=== PATIENT | male | born 1985 | race Caucasian/White ===

== ENCOUNTER 2016-08-12 05:04 | Emergency (ER) | payer OTHER ==
[2016-08-12] MEDS ORDERED: OXYMETAZOLINE HCL 0.05% NASAL SPRAY 15 ML BOTTLE ONE ×2 (06:15→06:57)
[2016-08-12] MEDS ORDERED: MORPHINE SULFATE 10 MG/ML INJ IV ONE ×2 (06:38→08:36)
[2016-08-12] MEDS ORDERED: ONDANSETRON HCL INJ/PF 4 MG/2 ML SDV IV ONE (06:38)
[2016-08-12 06:56] LABS: ABSOLUTE BASOPHILS # (AUTO) 0.1 10^3/uL (0.0-0.2); ABSOLUTE EOSINOPHILS # (AUTO) 0.1 10^3/uL (0.0-0.6); ABSOLUTE MONOCYTES (AUTO) 0.5 10^3/uL (0.1-1.4); ABSOLUTE NEUT (AUTO) 10.2 10^3/uL (1.7-8.2); BASOPHILS % (AUTO) 0.5 % (0-2); EOSINOPHILS % (AUTO) 0.4 % (0-6); HEMATOCRIT 45.4 % (37.9-51.0); HEMOGLOBIN 16.1 g/dL (13.5-17.0); HGB HCT DIFFERENCE 2.9; LYMPHOCYTES % (AUTO) 15.3 % (13-45); MEAN CORPUSCULAR HEMOGLOBIN 31.7 pg (27.0-33.4); MEAN CORPUSCULAR HGB CONC 35.5 g/dL (32.0-36.0); MEAN CORPUSCULAR VOLUME 89 fl (80-97); MONOCYTES % (AUTO) 4.2 % (3-13); RED BLOOD COUNT 5.09 10^6/uL (4.35-5.55); RED CELL DISTRIBUTION WIDTH 13.2 % (11.5-14.0); SEGMENTED NEUTROPHILS % (AUTO) 79.6 % (42-78); WHITE BLOOD COUNT 12.8 10^3/uL (4.0-10.5)
[2016-08-12 07:07] LABS: PARTIAL THROMBOPLASTIN TIME 26.8 SEC (23.5-35.8)
[2016-08-12 07:08] LABS: ALANINE AMINOTRANSFERASE 35 U/L (21-72); ALBUMIN 4.7 g/dL (3.5-5.0); ALKALINE PHOSPHATASE 49 U/L (38-126); ANION GAP 14 (5-19); ASPARTATE AMINO TRANSFERASE 26 U/L (17-59); BILIRUBIN,TOTAL 0.9 mg/dL (0.2-1.3); BLOOD UREA NITROGEN 21 mg/dL (7-20); CALCIUM 10.1 mg/dL (8.4-10.2); CARBON DIOXIDE 23 mmol/L (22-30); CHLORIDE 104 mmol/L (98-107); CREATININE RESULT 0.73 mg/dL (0.52-1.25); GLUCOSE 115 mg/dL (75-110); POTASSIUM 4.4 mmol/L (3.6-5.0); SODIUM 141.3 mmol/L (137-145); TOTAL PROTEIN 7.6 g/dL (6.3-8.2)
--- NOTE | 2016-08-12 07:22 | ER Document Report ---
ED ENT - General Chief Complaint: Nose Bleed Stated Complaint: NOSE BLEEDING Mode of Arrival: Ambulatory Information source: Patient Notes: This is a 31-year-old male with no significant past medical history who presents with epistaxis for the past 6 hours. He states that he has had difficulty getting his nosebleed to stop at home. He is not on anticoagulants and does not take aspirin. He does drink daily. He has had minor nosebleeds in the past but never anything to this degree. He denies any syncope or weakness. TRAVEL OUTSIDE OF THE [place] IN LAST 30 DAYS: No - Related Data Allergies/Adverse Reactions: No Known Allergies Allergy (Verified 08/12/16 05:05) Home Medications: Current Home Medications No Home Medications 08/12/16 [History] Past Medical History - General Information source: Patient - Social History Smoking Status: Never Smoker Chew tobacco use (# tins/day): No Frequency of alcohol use: Heavy Drug Abuse: None Family History: Reviewed & Not Pertinent - Past Medical History Cardiac Medical History: Reports: None Denies: Hx Heart Attack, Hx Hypertension Pulmonary Medical History: Reports: None Denies: Hx Asthma Renal/ Medical History: Denies: Hx Peritoneal Dialysis Surgical Hx: Negative Review of Systems - Review of Systems Notes: REVIEW OF SYSTEMS: CONSTITUTIONAL : Denies fever, chills, or sweats. Denies recent illness. EENT: As per history of present illness CARDIOVASCULAR: Denies chest pain. RESPIRATORY: Denies cough, cold, or chest congestion. Denies shortness of breath, difficulty breathing, or wheezing. GASTROINTESTINAL: Denies abdominal pain. Denies nausea, vomiting, or diarrhea. GENITOURINARY: Denies difficulty urinating, painful urination, burning, frequency, or blood in urine. MUSCULOSKELETAL: Denies neck or back pain or joint pain or swelling. SKIN: Denies rash or skin lesions. HEMATOLOGIC : Denies easy bruising or bleeding. LYMPHATIC: Denies swollen, enlarged glands. NEUROLOGICAL: Denies altered mental status or loss of consciousness. Denies headache. PSYCHIATRIC: Anxiety ALL OTHER SYSTEMS REVIEWED AND NEGATIVE. Physical Exam - Vital signs Vitals: Temp Pulse Resp BP Pulse Ox 97.4 F 114 H 18 145/94 H 99 08/12/16 05:23 08/12/16 05:23 08/12/16 05:23 08/12/16 05:23 08/12/16 05:23 - Notes Notes: PHYSICAL EXAMINATION: GENERAL: Anxious appearing, well-nourished and in no moderate distress secondary to active epistaxis. Conversant and protecting his airway. HEAD: Atraumatic, normocephalic. EYES: Pupils equal round and reactive to light, extraocular movements intact, sclera anicteric, conjunctiva are normal. ENT: brisk active bleeding from R nare, unable to localize source at this time, . Moist mucous membranes. NECK: Normal range of motion, supple without lymphadenopathy LUNGS: Breath sounds clear to auscultation bilaterally and equal. No wheezes rales or rhonchi. HEART: Regular rate and rhythm without murmurs ABDOMEN: Soft, nontender, normoactive bowel sounds. No guarding, no rebound. No masses appreciated. EXTREMITIES: Normal range of motion NEUROLOGICAL: No gross focal motor or sensory deficits appreciated. PSYCH: Anxious affect SKIN: Warm, Dry, normal turgor, no rashes or lesions noted. Course - Re-evaluation Re-evalutation: 08/12/16 07:14 08/12/16 07:50 Multiple attempts at packing with rapid Rhino. There was significant difficulty passing the entire 7.5 posterior rapid Rhino into the right near. As such the last 2 cm remains out. Patient then had bleeding from the left nares and a 4.5 cm rapid Rhino was placed. At this time the bleeding seems to have stabilized patient is no longer coughing up blood. His heart rate is now 95 he says he is feeling somewhat better. As there is no ENT available in [place] today I did discuss the case with [facility] Dr. Page who accepts the patient in an ER to ER transfer for further evaluation. - Vital Signs Vital signs: Temp Pulse Resp BP Pulse Ox 97.4 F 114 H 10 L 130/92 H 100 08/12/16 05:23 08/12/16 05:23 08/12/16 08:02 08/12/16 08:02 08/12/16 08:02 - Laboratory Result Diagrams: 08/12/16 06:47 08/12/16 06:47 Laboratory results interpreted by me: 08/12/16 08/12/16 06:47 06:47 WBC 12.8 H Seg Neutrophils % 79.6 H Absolute Neutrophils 10.2 H BUN 21 H Glucose 115 H Procedures - Nosebleed Procedure Right Location: Posterior Supplies used: [place] Notes: Pt cleared nares of clots with forceful blowing, then Afrin sprayed into nares bilaterally. 4% cocaine soaked cotton balls placed in R nare. 3 attempts at placement, placement somewhat difficult. 4.5 rapid rhino also placed to L nare. Hemostasis was obtained. Discharge - Discharge Clinical Impression: Acute posterior epistaxis, Alcohol abuse Condition: Stable Disposition: [facility]
[2016-08-12] MEDS ORDERED: NORMAL SALINE 1000 ML 1,000 ML IV ONE (07:23)
[2016-08-12] MEDS ORDERED: COCAINE HCL 4% TOPICAL SOLN 4 ML TP ONE (07:24)
[2016-08-12 09:39] VITALS: BP 130/92
== END 2016-08-12 08:45 | disposition short-term general hospital (02) ==
LOC: ER 05:04
PROC: 2Y41X5Z Packing of Nasal Region using Packing Material (ICD-10-PCS; principal; 2016-08-12)
DX: R04.0 Epistaxis (principal); F10.10 Alcohol abuse, uncomplicated
CPT/HCPCS: 96376; 99284; 96374; 96375; 36415; 85025; 85610; 85730; 80053; 30905; J3490 ×2; J2270; J2405